=== PATIENT | male | born 1995 | race Caucasian/White ===

== ENCOUNTER 2022-04-28 08:07 | Outpatient (CLI) | payer OTHER ==
--- NOTE | 2022-04-28 12:02 | MRI Report ---
PROCEDURE: SHOULDER WO - LT INDICATIONS: LEFT SHOULDER PAIN TECHNIQUE: Noncontrast oblique coronal T2 fast spin echo with fat saturation, oblique sagittal T1 spin echo and T2 fast spin echo with fat saturation, axial T1 spin echo and T2 fast spin echo with fat saturation t hrough the shoulder. COMPARISON: None. FINDINGS: Image quality: Motion degraded Rotator cuff Bulk: No significant atrophy Teres minor: Intact Supraspinatus: There is bursal surface fraying without full-thickness defect. Infraspinatus: Tendinosis and small articular surface tear Subscapularis: Mild tendinosis. Bones and bursae GH joint: No significant degenerative changes AC joint: No significant degenerative changes Humeral head: No acute fracture Scapula and acromion: No acute fracture Bursa: Possible trace bursitis Capsule Labrum: There might be a sublabral foramen. No discrete undercutting fluid signal Long head biceps tendon: Intact IGHL: Intact Rotator interval: Fat signal is preserved Soft tissues: No axillary adenopathy. Lungs are not well seen. IMPRESSION: Motion degraded nonarthrographic MRI. No significant internal derangement identified. Minor fraying a nd small tear of the superior cuff as above. No full-thickness defect or atrophy. Possible trace burs itis. Consider arthrographic evaluation could further assess the labrum if needed. Reviewed by: Teijnder Hernandez MD on 04/28/2022 12:01 PM PDT Approved by: Tejinder Hernandez MD on 04/28/2022 12:01 PM PDT Station ID: [id number]
== END 2022-04-28 08:08 | disposition home or self-care (01) ==
LOC: DI 08:07
PROVIDERS: ATTEND Student in an Organized Health Care Education/Training Program
DX: M75.112 Incomplete rotator cuff tear or rupture of left shoulder, not specified as traumatic (principal)

== ENCOUNTER 2023-02-05 04:44 | Emergency (ER) | payer OTHER ==
[2023-02-05 05:21] VITALS: BP 123/76
[2023-02-05] MEDS ORDERED: CHERRY SYRUP 10 ML UDC PO ONE (05:22)
[2023-02-05] MEDS ORDERED: DEXAMETHASONE 10 MG/ML VIAL PO STA (05:22)
--- NOTE | 2023-02-05 05:30 | ED Physician Documentation ---
PD HPI HEENT - Stated complaint Stated Complaint: L NECK PX - Chief complaint Chief Complaint: Heent - History obtained from History obtained from: Patient - Additional information Additional information: 2-3 DAYS OF LEFT NECK PAIN AND SORE THROAT. CONCERNED HE MAY HAVE PERITONSILLAR ABSCESS. 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 denies: Dental pain / toothache, Oral lesions / sores PD PAST MEDICAL HISTORY - Past Medical History Past Medical History: Yes Psych: Depression, Anxiety - Past Surgical History Past Surgical History: Yes HEENT: Other - Present Medications Home Medications: Ambulatory Orders Medication Instructions Recorded Confirmed Meloxicam [Mobic] 7.5 mg PO DAILY PRN 02/05/23 02/05/23 methylPREDNISolone [Medrol Dose 1 each PO .PACKAGEINSTRUCTIONS 6 02/05/23 Pack] Days #1 each - Allergies Allergies/Adverse Reactions: Allergies Allergy/AdvReac Type Severity Reaction Status Date / Time No Known Drug Allergies Allergy Verified 02/05/23 05:15 - Social History Does the pt smoke?: No Smoking Status: Never smoker Does the pt drink ETOH?: Yes ETOH Use: Beer, Liquor Does the pt have substance abuse?: No - Immunizations Immunizations are current?: Yes - POLST Patient has POLST: No PD ED PE NORMAL - Vitals Vital signs reviewed: Yes - General General: Alert and oriented X 3, No acute distress, Well developed/nourished - HEENT HEENT: Atraumatic, PERRL, EOMI, Moist mucous membranes, Dentition benign, Other (bilaterally tonsillar erythema without exudate. 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 At this time patient does have pharyngeal erythema, however there is no exudate, tonsils are equal in size and there is no uvular deviation. No drooling, no pooling of secretions, voice is normal to patient. No evidence of peritonsillar abscess at this time. Will give steroids and will swab for strep throat. Rapid strep negative, per [facility] criteria watchful waiting is indicated. Patient counseled on his results. I explained at this time strep is negative and there is no evidence of peritonsillar abscess. Patient is relieved to know there does not appear to be an abscess. Will discharge on steroid taper, however ultimately believe this is unlikely to be a developing abscess. Patient counseled that he may take Tylenol and Motrin as needed for pain and he may do salt water gargles as needed for comfort. PCP follow-up advised. Departure - Departure Disposition: 01 Home, Self Care Clinical Impression: Pharyngitis Condition: Stable Instructions: Sore Throat Prescriptions: methylPREDNISolone [Medrol Dose Pack] 1 each PO .PACKAGEINSTRUCTIONS 6 Days #1 each Forms: PCP List
[2023-02-05 05:42] LABS: RAPID STREP SCREEN Negative (Negative)
== END 2023-02-05 05:56 | disposition home or self-care (01) ==
LOC: ED 04:44
DX: J02.9 Acute pharyngitis, unspecified (principal)
CPT/HCPCS: 87070; 87430; 99283; A9270

== ENCOUNTER 2024-03-18 14:45 | Outpatient (CLI) | payer OTHER ==
[2024-03-18 20:57] LABS: CHLAMYDIA TRACHOMATIS DNA NEGATIVE (NEGATIVE); NEISSERIA GONORRHOEAE DNA NEGATIVE (NEGATIVE); TRICHOMONAS VAGINALIS DNA NEGATIVE (NEGATIVE)
[2024-03-20 05:09] LABS: HIV SCREEN 4TH GENERATION Non Reactive (Non Reactive)
[2024-03-20 09:07] LABS: HSV 1 IGG TYPE SPEC <0.91 index (0.00-0.90); HSV 2 IGG TYPE SPEC <0.91 index (0.00-0.90)
[2024-03-21 05:28] LABS: HCV AB Non Reactive (Non Reactive)
== END 2024-03-18 15:00 | disposition home or self-care (01) ==
LOC: LAB.N 14:45
PROVIDERS: ATTEND Physician Assistant Medical
DX: Z11.3 Encounter for screening for infections with a predominantly sexual mode of transmission (principal)
CPT/HCPCS: 36415; 86592; 86695; 86696; 86803; 87389; 87491; 87591; 87661